=== PATIENT | male | born 1935 | race Caucasian/White ===

== ENCOUNTER 2017-11-04 16:49 | Emergency (ER) | payer MEDICARE ==
[2017-11-04 17:29] LABS: ABS Basophils 0 10^3/ul (0-0.2); ABS Eosinophils 0 10^3/ul (0-0.6); ABS Monocytes 0.6 10^3/ul (0-0.8); ABS Nucleated RBC 0 10^3/ul; Eosinophil % 0.1 % (0-6); Hematocrit 31 % (42-52); Hemoglobin 10.1 g/dl (14.0-18.0); Mean Corpuscular HGB Conc 33 g/dl (31-36); Mean Corpuscular Hemoglobin 26 pg (27-31); Mean Corpuscular Volume 80 fL (80-94); Mean Platelet Volume 9 um3 (7.4-10.4); Nucleated Red Blood Cells % 0; Platelet Count 169 10^3/ul (150-450); Red Blood Count 3.84 10^6/ul (4.0-5.4); Red Cell Distribution Width 16 % (10.5-15); White Blood Count 8.7 10^3/ul (3.5-10.8)
[2017-11-04 17:39] LABS: INR 1.06 (0.77-1.02)
--- NOTE | 2017-11-04 17:39 | RAD ---
INDICATION: Hematemesis. COMPARISON: There are no prior studies available for comparison. TECHNIQUE: A portable view of the chest was obtained. FINDINGS: The heart is within normal limits in size. The lungs are hyperinflated suggestive of chronic obstructive pulmonary disease. There is a focal infiltrate which projects over the right heart border at the right lung base most consistent with pneumonia. No pleural effusion is seen. IMPRESSION: RIGHT BASILAR INFILTRATE MOST CONSISTENT WITH PNEUMONIA.
[2017-11-04] MEDS ORDERED: Levofloxacin 750 MG IVPREMIX(* 750 MG/150 ML BAG IVPB ONE (17:48)
[2017-11-04] MEDS ORDERED: NS 0.9% 1000 ML* 1,000 ML IV ONE (17:48)
[2017-11-04 17:50] LABS: EGFR Non-African American 133.8 (>60)
[2017-11-04] MEDS ORDERED: Pantoprazole IV* 40 MG IV ONE (18:55)
--- NOTE | 2017-11-04 19:45 | RAD ---
INDICATION: Hemoptysis. COMPARISON: Comparison is made with a prior chest x-ray study of the same day. TECHNIQUE: A CT scan of the chest was performed without intravenous contrast. Contiguous axial sections were obtained from the lung apices through the lung bases. Images were reconstructed in the coronal and sagittal planes. FINDINGS: There are patchy nodular infiltrates present within the right middle and lower lobes and faint groundglass infiltrates present in the left upper and lower lobes. The nodularity appears most prominent in the right lower lobe and toward the right hilar region. There is a small right pleural effusion. There are slightly prominent precarinal and subcarinal lymph nodes measuring up to 1.2 cm in transverse dimension. The heart is within normal limits in size. No pericardial effusion is present. There are coronary artery calcifications present. The thoracic aorta is normal in caliber. Imaging of the upper abdomen demonstrate postcholecystectomy changes. 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 No hydronephrosis is seen. There is a mild compression fracture of the superior endplate of the L1 vertebral body, age indeterminate. IMPRESSION: 1. BILATERAL INFILTRATES MOST PROMINENT IN THE RIGHT MIDDLE AND LOWER LOBES WITH SOME NODULARITY PRESENT MOST CONSISTENT WITH PNEUMONIA. RECOMMEND FOLLOW-UP CHEST X-RAYS TO RESOLUTION. 2. SMALL RIGHT PLEURAL EFFUSION. 3. MILDLY ENLARGED MEDIASTINAL LYMPH NODES. 4. NONOBSTRUCTING LEFT RENAL CALCULI. 5. MILD COMPRESSION FRACTURE OF THE SUPERIOR ENDPLATE OF THE L1 VERTEBRAL BODY, AGE INDETERMINATE.
--- NOTE | 2017-11-04 19:59 | ED ---
Haley Pike Thomas, scribed for Louis Zabala MD on 11/04/17 at 1704 . Respiratory - HPI Summary HPI Summary: The patient is an 81 year old male complaining of coughing up blood that began today. The patient reports he has been producing colored mucous for the last few days. He has generalized weakness. He is febrile at 101.2. When EMS arrived , the patient was satting 86. He has been steadily losing weight over the last few weeks. Per documentation from Dr. Waters office, the patient has COPD. - History of Current Complaint Chief Complaint: EDGeneral Stated Complaint: COUGHING UP BLOOD Time Seen by Provider: 11/04/17 16:59 Hx Obtained From: Patient Onset/Duration: Lasting Hours - onset today, Still Present Timing: Intermittent Episodes Lasting: Current Severity: Severe Pain Intensity: 0 Character: Cough (Productive) Alleviating Factor(s): Nothing Associated Signs and Symptoms: Fever - Allergy/Home Medications Allergies/Adverse Reactions: Allergies Allergy/AdvReac Type Severity Reaction Status Date / Time levofloxacin [From Levaquin] Allergy Hives Verified 11/04/17 18:53 Home Medications: Home Medications Ketoconazole [Ketoconazole] 2 % TOPICAL .THREETIMESWEEKLY 11/04/17 [History Confirmed 11/04/17] Latanoprost 0.005%* [Xalatan 0.005%*] 1 drop BOTH EYES DAILY 11/04/17 [History Confirmed 11/04/17] Omeprazole CAP* [Prilosec CAP* 20 MG] 20 mg PO BID 11/04/17 [History Confirmed 11/04/17] Penicillin VK TAB* [Penicillin VK 250 mg Tab*] 500 mg PO QID 11/04/17 [History Confirmed 11/04/17] Ranitidine TAB (NF) [Zantac TAB (NF)] 300 mg PO BEDTIME 11/04/17 [History Confirmed 11/04/17] Timolol 0.5% OPTH.JUAN* [Timoptic 0.5% Opth*] 1 drop BOTH EYES BID 11/04/17 [ History Confirmed 11/04/17] PMH/Surg Hx/FS Hx/Imm Hx Respiratory History: Reports: Hx Chronic Obstructive Pulmonary Disease (COPD) Sensory History: Denies: Hx Legally Blind EENT History: Reports: Hx Hearing Problem Infectious Disease History: No Infectious Disease History: Denies: Traveled Outside the [place] in Last 30 Days - Family History Known Family History: Positive: Other - Intestinal obstruction (mother at 23) - Social History Occupation: Unemployed Lives: Alone Smoking Status (MU): Unknown if Ever Smoked Review of Systems Positive: Fever, Other - Generalized weakness, weight loss Positive: Other - Hemoptysis All Other Systems Reviewed And Are Negative: Yes Physical Exam - Summary Physical Exam Summary: Appearance: The patient is in no acute distress and in no acute pain. Skin: The skin is warm and dry and skin color reflects adequate perfusion. HEENT: The head is normocephalic and atraumatic. The pupils are equal and reactive. The conjunctivae are clear and without drainage. Nares are patent and without drainage. Mouth reveals moist mucous membranes and the throat is without erythema and exudate. The external ears are intact. The ear canals are patent and without drainage. The tympanic membranes are intact. Neck: the neck is supple with full range of motion and non-tender. There are no carotid bruits. There is no neck vein distension. Respiratory: Chest is non-tender. There are decreased lung sounds on the right. There are no lungs sounds on the base of the right. There are crackles diffusely on the left. Cardiovascular: He has tachycardia. Regular rhythm. There is no murmur or rub auscultated. There is no peripheral edema and pulses are symmetrical and equal. Abdomen: The abdomen is soft and non-tender. There are normal bowel sounds heard in all four quadrants and there is no organomegaly palpated. Musculoskeletal: There is no back tenderness noted. Extremities are non-tender with full range of motion. There is good capillary refill. There is no peripheral edema or calf tenderness elicited. Neurological: Patient is alert and oriented to person, place and time. The patient has symmetrical motor strength in all four extremities. Cranial nerves are grossly intact. Deep tendon reflexes are symmetrical and equal in all four extremities. Psychiatric: The patient has an appropriate affect and does not exhibit any anxiety or depression. Triage Information Reviewed: Yes Vital Signs On Initial Exam: Initial Vitals Temp Pulse Resp BP Pulse Ox 101.2 F 105 18 166/85 93 11/04/17 16:55 11/04/17 16:55 11/04/17 16:55 11/04/17 16:55 02/18/18 16:55 Vital Signs Reviewed: Yes Diagnostics - Vital Signs Vital Signs Temp Pulse Resp BP Pulse Ox 11/04/17 16:55 101.2 F 105 18 166/85 93 - Laboratory Lab Results: Lab Results 11/04/17 11/04/17 11/04/17 Range/Units 17:15 17:15 17:15 WBC 8.7 (3.5-10.8) 10^3/ul RBC 3.84 L (4.0-5.4) 10^6/ul Hgb 10.1 L (14.0-18.0) g/dl Hct 31 L (42-52) % MCV 80 (80-94) fL MCH 26 L (27-31) pg MCHC 33 (31-36) g/dl RDW 16 H (10.5-15) % Plt Count 169 (150-450) 10^3/ul MPV 9 (7.4-10.4) um3 Neut % (Auto) 80.5 (38-83) % Lymph % (Auto) 12.0 L (25-47) % Edgar % (Auto) 6.9 (1-9) % Eos % (Auto) 0.1 (0-6) % Baso % (Auto) 0.5 (0-2) % Absolute Neuts (auto) 7.0 (1.5-7.7) 10^3/ul Absolute Lymphs (auto) 1.0 (1.0-4.8) 10^3/ul Absolute Monos (auto) 0.6 (0-0.8) 10^3/ul Absolute Eos (auto) 0 (0-0.6) 10^3/ul Absolute Basos (auto) 0 (0-0.2) 10^3/ul Absolute Nucleated RBC 0 10^3/ul Nucleated RBC % 0 INR (Anticoag Therapy) (0.77-1.02) D-Dimer, Quantitative (Less Than 230) ng/mL Sodium 139 (133-145) mmol/L Potassium 3.6 (3.5-5.0) mmol/L Chloride 103 (101-111) mmol/L Carbon Dioxide 24 (22-32) mmol/L Anion Gap 12 H (2-11) mmol/L BUN 22 (6-24) mg/dL Creatinine 0.58 L (0.67-1.17) mg/dL Est GFR ( Amer) 172.1 (>60) Est GFR (Non-Af Amer) 133.8 (>60) BUN/Creatinine Ratio 37.9 H (8-20) Glucose 151 H (70-100) mg/dL Lactic Acid (0.5-2.0) mmol/L Calcium 9.1 (8.6-10.3) mg/dL Total Bilirubin 0.60 (0.2-1.0) mg/dL AST 19 (13-39) U/L ALT 12 (7-52) U/L Alkaline Phosphatase 75 (34-104) U/L Troponin I 0.02 (<0.04) ng/mL C-Reactive Protein 17.08 H (< 5.00) mg/L B-Natriuretic Peptide 66 ( - 100) pg/mL Total Protein 6.8 (6.4-8.9) g/dL Albumin 3.5 (3.2-5.2) g/dL Globulin 3.3 (2-4) g/dL Albumin/Globulin Ratio 1.1 (1-3) Influenza A (Rapid) (Negative) Influenza B (Rapid) (Negative) 11/04/17 11/04/17 11/04/17 Range/Units 17:15 17:15 17:57 WBC (3.5-10.8) 10^3/ul RBC (4.0-5.4) 10^6/ul Hgb (14.0-18.0) g/dl Hct (42-52) % MCV (80-94) fL MCH (27-31) pg MCHC (31-36) g/dl RDW (10.5-15) % Plt Count (150-450) 10^3/ul MPV (7.4-10.4) um3 Neut % (Auto) (38-83) % Lymph % (Auto) (25-47) % Edgar % (Auto) (1-9) % Eos % (Auto) (0-6) % Baso % (Auto) (0-2) % Absolute Neuts (auto) (1.5-7.7) 10^3/ul Absolute Lymphs (auto) (1.0-4.8) 10^3/ul Absolute Monos (auto) (0-0.8) 10^3/ul Absolute Eos (auto) (0-0.6) 10^3/ul Absolute Basos (auto) (0-0.2) 10^3/ul Absolute Nucleated RBC 10^3/ul Nucleated RBC % INR (Anticoag Therapy) 1.06 H (0.77-1.02) D-Dimer, Quantitative < 200 (Less Than 230) ng/mL Sodium (133-145) mmol/L Potassium (3.5-5.0) mmol/L Chloride (101-111) mmol/L Carbon Dioxide (22-32) mmol/L Anion Gap (2-11) mmol/L BUN (6-24) mg/dL Creatinine (0.67-1.17) mg/dL Est GFR ( Amer) (>60) Est GFR (Non-Af Amer) (>60) BUN/Creatinine Ratio (8-20) Glucose (70-100) mg/dL Lactic Acid 2.4 H* (0.5-2.0) mmol/L Calcium (8.6-10.3) mg/dL Total Bilirubin (0.2-1.0) mg/dL AST (13-39) U/L ALT (7-52) U/L Alkaline Phosphatase (34-104) U/L Troponin I (<0.04) ng/mL C-Reactive Protein (< 5.00) mg/L B-Natriuretic Peptide ( - 100) pg/mL Total Protein (6.4-8.9) g/dL Albumin (3.2-5.2) g/dL Globulin (2-4) g/dL Albumin/Globulin Ratio (1-3) Influenza A (Rapid) Negative (Negative) Influenza B (Rapid) Negative (Negative) Result Diagrams: 11/04/17 17:15 11/04/17 17:15 Lab Statement: Any lab studies that have been ordered have been reviewed, and results considered in the medical decision making process. - Radiology CXR Xray Interpretation: Positive (See Comments) - RIGHT BASILAR INFILTRATE MOST CONSISTENT WITH PNEUMONIA. Dr. Zabala has reviewed this report. Radiology Interpretation Completed By: Radiologist Disposition - Course Course Of Treatment: Mr. Valderrama presented with a day of coughing up some mucous. In the last 3 hours, it has been bright red blood. He is unaware of a diagnosis of COPD which is in the paperwork that he brought with him from Dr. Camacho' office. He does cough up some bright red blood here and the estimate is about 6 ounces or so in the last 4 hours. His CXR revealed a left infiltrate and I started levaquin on him. He was given IV NS and the hospitalist service was contacted to see him. Dr. Manzanares came and saw the patient who began to have an urticarial reaction to the levaquin and changed him to a cephalosporin. CT chest showed infiltrates only. Dr. Vallejo was contacted by Dr. Manzanares as licensed acupuncturist and mold closer on [facility]. She refused the patient as we have no thoracic surgery backup and requested that he be transferred to [facility]. I spoke with Dr. Aviles who accepted the patient to the ICU at [facility]. He has been stable since arrival and has two peripheral IVs in place. - Diagnoses Provider Diagnoses: PNA (pneumonia), Hemoptysis - Physician Notifications Discussed Care Of Patient With: Aurelio Manzanares Time Discussed With Above Provider: 18:28 - Critical Care Time Critical Care Time: 30-74 min Discharge - Discharge Plan Condition: Fair Disposition: ADMITTED TO [facility] Referrals: No Primary Care Phys,NOPCP [Primary Care Provider] - The documentation as recorded by the Haley rodrigez Thomas accurately reflects the service I personally performed and the decisions made by me, Louis Zabala MD.
[2017-11-04 21:10] VITALS: BP 137/89
[2017-11-05] MEDS ORDERED: cefTRIAXone(*) 1 GM in NS 0.9% 50 ML* 50 ML IVPB ONE (01:00)
== END 2017-11-04 21:27 | disposition short-term general hospital (02) ==
LOC: ED 16:49
DX: J18.9 Pneumonia, unspecified organism (principal); R04.2 Hemoptysis; J90 Pleural effusion, not elsewhere classified; R59.0 Localized enlarged lymph nodes; N20.0 Calculus of kidney; M48.56XA Collapsed vertebra, not elsewhere classified, lumbar region, initial encounter for fracture; J44.9 Chronic obstructive pulmonary disease, unspecified; R00.0 Tachycardia, unspecified; Z88.1 Allergy status to other antibiotic agents
CPT/HCPCS: 36415; 71045; 71250; 80053; 83605; 83880; 84484; 85025; 85379; 85610; 86140; 86850; 86900; 86901; 87040; 87502; 96361; 96365; 96366; 96375; 99285

== ENCOUNTER 2018-09-11 10:45 | Observation (INO) | payer MEDICARE, MEDICAID ==
[2018-09-11] MEDS ORDERED: Dexamethasone IV* 4 MG/ML 1 ML (4 MG) ONE (13:01)
[2018-09-11] MEDS ORDERED: Cisatracurium* 2 MG/ML MDV 5 ML ONE (13:01)
[2018-09-11] MEDS ORDERED: Midazolam* 1 MG/ML 2 ML VIAL (2 MG) ONE (13:01)
[2018-09-11] MEDS ORDERED: Famotidine IV* 10 MG/ML 2 ML (20 mg) ONE (13:01)
[2018-09-11] MEDS ORDERED: Propofol* 10 MG/ML 20 ML BTL ONE (13:01)
[2018-09-11] MEDS ORDERED: fentaNYL* 50 MCG/ML 2 ML VIAL (100 MCG VIAL) ONE (13:01)
[2018-09-11] MEDS ORDERED: Acetaminophen TAB* 325 MG PO PRN (13:35)
[2018-09-11] MEDS ORDERED: Ondansetron INJ* 2 MG/ML VIAL IV PRN (13:35)
[2018-09-11] MEDS ORDERED: PROCHLORPERAZINE INJ 5 MG/ML 2 ML VIAL IV PRN (13:35)
[2018-09-11] MEDS ORDERED: Levalbuterol 0.63MG/3ML NEB* UNIT OF USE INH PRN (13:35)
[2018-09-11] MEDS ORDERED: Naloxone* 0.4 MG/ML 1 ML VIAL IV PRN (13:35)
[2018-09-11] MEDS ORDERED: DiMENhydriNATE IV* 50 MG/ML VIAL IV PUSH PRN (13:35)
[2018-09-11] MEDS ORDERED: fentaNYL* 50 MCG/ML 2 ML VIAL (100 MCG VIAL) IV PRN (13:35)
[2018-09-11] MEDS ORDERED: Lidocaine 2% PF * 5 ML VIAL ONE (14:11)
[2018-09-11] MEDS ORDERED: Albuterol 2.5 MG/3 ML NEB.SOL* (0.083%) INH PRN (15:20)
--- NOTE | 2018-09-11 16:31 | PRO ---
BRONCHOSCOPY REPORT: DATE OF PROCEDURE: 09/11/18 PROCEDURE PERFORMED: Bronchoscopy with endobronchial ultrasound-guided fine- needle aspiration from the station 7 lymph node. PREPROCEDURAL DIAGNOSIS: Enlarged station 7 lymph node. ANESTHESIA: General anesthesia. ANESTHESIOLOGIST: Dr. Mcleod. DESCRIPTION OF PROCEDURE: Informed consent was obtained from the patient prior to the procedure after all the risks and benefits were thoroughly explained. The patient has history of chronic cough, history of hemoptysis and bronchiectasis. Recent CT showed bronchiectasis, lung infiltrates and enlarged station 7 lymph node with abnormal vascularity. Appropriate time-out was agreed on by attending staff prior to the procedure. A flexible Olympus bronchoscope was inserted through ET tube for airway inspection. Green phlegm was seen in the right middle lobe and was suctioned out. Bronchoalveolar lavage was obtained from right middle lobe. No endobronchial lesions were noted. No significant secretions noted in other areas. Bronchoscope was then withdrawn and EBUS bronchoscope was inserted. Station 7 was enlarged and was accessed with 7 passes. First 4 passes did not reveal lymphatic tissue, blood was seen on rapid onsite evaluation. Pass 6 and 7 showed lymphatic tissue with no malignant cells or granulomas. The patient tolerated the procedure well. The patient was extubated and seen in the recovery in optimal condition. The patient will be admitted for monitoring overnight as he has no family or friends that can provide ride for him. [id number]/[facility] #: [id number] [facility]ENTERM[facility]
--- NOTE | 2018-09-11 16:54 | PN ---
Progress Note - Progress Note Date of Service: 09/11/18 - Admit note Note: Pt is 82 y o m, non- smoker with h/o BPH, GERD, Glaucoma, bronchiectasis, prior h/o hemoptysis. Pt has h/o abnormal CT chest with airspace opacities in left lung , signficant bronchiectatic changes, enlarged subcarinal node. He had flexible and rigid bronchoscopy in Oct 2017 at [place] when he presented with hemoptysis. No bleeding source was noted, blood clot was removed. No hemoptysis since then. He has chronic productive cough which is being managed with mucus clearance techniques. Pt underwent f/u CT chest recently which showed signifcanlty enlarged station-7 node with increased vascularity. He was scheduled for bronchoscopy/EBUS today under [place]. Patient lives alone and doesnot have family or friends and was admitted for observation status. Pt denied significant cough after GA. Denied headache, SOB. Has BPH and has poor urinary stream. PMHx: As above PSHx: Stomach sx 1959, 1962, Hernia repairX2, Gall bladder, kidney stone removal , Tonsillectomy, [place] tooth removal FHx: Father- Asthma All: Codeine Social Hx: Non-smoker, no ETOH or drug abuse Latanoprost 0.005%* [Xalatan 0.005%*] 1 drop BOTH EYES BEDTIME 11/04/17 [ History Confirmed 09/09/18] Omeprazole CAP* [Prilosec CAP* 20 MG] 20 mg PO DAILY PRN 11/04/17 [History Confirmed 09/11/18] Ranitidine TAB (NF) [Zantac TAB (NF)] 300 mg PO BID PRN 11/04/17 [History Confirmed 09/09/18] Timolol 0.5% OPTH.JUAN* [Timoptic 0.5% Opth*] 1 drop BOTH EYES BID 11/04/17 [ History Confirmed 09/09/18] Aspirin [Adult Aspirin] 81 mg PO 1200 09/09/18 [History Confirmed 09/09/18] Cyanocobalamin TAB* [Vitamin B12 TAB*] 1,000 mcg PO 1200 09/09/18 [History Confirmed 09/09/18] Ferrous Sulfate [Iron High-Potency] 325 mg PO 1200 09/09/18 [History Confirmed 09/09/18] Furosemide [Lasix] 20 mg PO 1200 PRN 09/09/18 [History Confirmed 09/11/18] Multivitamin [Multiple Vitamins] 1 tab PO 1200 09/09/18 [History Confirmed 09/09] Alex-3 Fatty Acids/Fish Oil [Fish Oil 1,000 mg Capsule] 1,000 mg PO 1200 [History Confirmed 09/09/18] RX: Ascorbic Acid 500 mg PO 1200 09/09/18 [History Confirmed 09/09/18] RX: Ketoconazole 2 % CREAM (NF) [Nizoral 2% CREAM (NF)] 1 applic TOPICAL TID [History Confirmed 09/09/18] RX: Tamsulosin HCl 1 tab PO QAM 09/09/18 [History Confirmed 09/11/18] O/E: Pt in NAD Vital Signs Temp Pulse Resp BP Pulse Ox 96.8 F 76 17 166/82 100 09/11/18 14:21 09/11/18 15:30 09/11/18 16:00 09/11/18 15:30 09/11/18 15:30 HEENT: PERRLA, no JVD Lungs: Good a/e b/l CVS: S1, S2, regular Abd: Soft, BS+ Ext: Normal ROM Skin: No rash Neuro: Alert, awake, no focal deficits Labs: No new labs A/P: 82 y o m s/p bronchoscopy/EBUS under GA with sampling of station-7 node. Please refer to detailed procedure report Pt admitted with telemetry monitoring under hospitalist service All home meds and diet were restarted Pt in NAD after procedure c/w bronchodilators prn DVT, GI px For d/c home in am D/w Dr Manzanares and pts RN
[2018-09-11] MEDS ORDERED: Omeprazole CAP* 20 MG PO PRN (17:00)
[2018-09-11] MEDS ORDERED: Latanoprost 0.005%* 2.5 ml BTL BOTH EYES SCH (21:00)
[2018-09-11] MEDS: Heparin VIAL(*) 5000 UNITS/ML VIAL (FIVE THOUSAND) SUBCUT SCH (22:15)
[2018-09-11] MEDS: Timolol 0.5% OPTH.SOL* BTL BOTH EYES SCH (22:15)
[2018-09-12] MEDS: Heparin VIAL(*) 5000 UNITS/ML VIAL (FIVE THOUSAND) SUBCUT SCH (05:35)
[2018-09-12 07:58] VITALS: BP 156/75
[2018-09-12] MEDS: Timolol 0.5% OPTH.SOL* BTL BOTH EYES SCH (08:26)
[2018-09-12] MEDS ORDERED: Tamsulosin CAP* 0.4 MG PO SCH (09:00)
--- NOTE | 2018-09-12 10:30 | PN ---
Progress Note - Progress Note Date of Service: 09/12/18 - Pulm f/u note Note: Pt seen and was examined at bedside. Pt reports doing well. Denies much cough. No issues o/n. Reports seeing bright red blood while urinating, unsure if its from IV. Urine was clear. Active Medications Generic Name Dose Route Start Last Admin Trade Name Freq PRN Reason Stop Dose Admin Albuterol 2.5 mg 09/11/18 15:20 Ventolin 2.5 Mg/3 Ml Neb.Nuria* INH [id number] AWAKE PRN sob/wheezing Ascorbic Acid 500 mg 09/12/18 12:00 Vitamin C Tab* PO 1200 KARIE Aspirin 81 mg 09/12/18 12:00 Aspirin Ec Tab* PO 1200 KARIE Cyanocobalamin 1,000 mcg 09/12/18 12:00 Vitamin B12 Tab* PO 1200 KARIE Ferrous Sulfate 325 mg 09/12/18 12:00 Ferrous Sulfate Tab* PO 1200 KARIE Furosemide 20 mg 09/12/18 12:00 Lasix Tab* PO 1200 PRN Edema Heparin Sodium (Porcine) 5,000 units 09/11/18 22:00 09/12/18 05:35 Heparin Vial(*) SUBCUT 5,000 units Q8HR KAREI Administration Latanoprost 1 drop 09/11/18 21:00 09/11/18 22:15 Xalatan 0.005%* BOTH EYES 1 drop BEDTIME KARIE Administration Multivitamins 1 tab 09/12/18 12:00 Vitamin Tab* PO 1200 KARIE Omeprazole 20 mg 09/11/18 17:00 Prilosec Cap* PO DAILY@0730 PRN INDIGESTION Tamsulosin HCl 0.4 mg 09/12/18 09:00 09/12/18 08:24 Flomax Cap* PO Not Given QAM KARIE Timolol Maleate 1 drop 09/11/18 21:00 09/12/18 08:26 Timoptic 0.5% Opth* BOTH EYES 1 drop BID KARIE Administration O/E: Vital Signs Temp Pulse Resp BP Pulse Ox 98.5 F 72 16 156/75 99 09/12/18 07:24 09/12/18 07:24 09/12/18 08:00 09/12/18 07:24 09/12/18 07:24 HEENT: PERRLA, no JVD Lungs: Good a/e b/l CVS: S1, S2, regular Abd: Soft, BS+ Ext: Normal ROM Skin: No rash Neuro: Alert, awake, no focal deficits Labs: No new labs A/P: 82 y o m s/p bronchoscopy/EBUS under GA on 09/11/18 with sampling of station-7 node. Pt was placed in observation status given no safe discharge plan Uneventful course o/n c/w bronchodilators prn DVT, GI px Cx from BAL negative to date No malignant cells noted on lymph node sampling priliminary read For d/c home today
[2018-09-12] MEDS ORDERED: Ferrous Sulfate TAB* 325 MG PO SCH (12:00)
[2018-09-12] MEDS ORDERED: Aspirin EC TAB* 81 MG TAB.EC PO SCH (12:00)
[2018-09-12] MEDS ORDERED: Cyanocobalamin TAB* 500 MCG PO SCH (12:00)
[2018-09-12] MEDS ORDERED: Prenatal Vitamin TAB PO SCH (12:00)
[2018-09-12] MEDS ORDERED: Ascorbic Acid TAB* 500 MG PO SCH (12:00)
[2018-09-12] MEDS ORDERED: Furosemide TAB* 20 MG PO PRN (12:00)
--- NOTE | 2018-09-12 23:49 | DS ---
CC: Dr. Moses Camacho; Dr. Jessica Vallejo* DISCHARGE SUMMARY: DATE OF ADMISSION: 09/11/18 DATE OF DISCHARGE: 09/12/18 ATTENDING PHYSICIAN: Dr. Rodger Lozano* (dictated by LUDWIN Mcgarry). PRIMARY CARE PROVIDER: Dr. Moses Camacho. OUTPATIENT REGULATORY ASSISTANT: Dr. Jessica Vallejo. PRIMARY DISCHARGE DIAGNOSIS: Bronchoscopy, lung mass. SECONDARY DISCHARGE DIAGNOSIS: 1. Bronchiectasis. 2. BPH. 3. Gastroesophageal reflux disease. 4. Glaucoma. 5. Abnormal chest CT. 6. Nephrolithiasis. STUDIES: Cytology shows bronchial lavage negative for malignant cells. Lymph node biopsy shows benign lymphoid tissue. MEDICATIONS AT DISCHARGE: 1. Timolol 0.5% one drop both eyes b.i.d. 2. Ranitidine 300 mg p.o. b.i.d. as needed. 3. Omeprazole 20 mg p.o. daily. 4. Latanoprost 1 drop both eyes at bedtime. 5. Multivitamin 1 tab p.o. daily. 6. Ketoconazole 1 application topical t.i.d. 7. Furosemide 20 mg p.o. daily as needed. 8. [place]-3 fatty acid 1000 mg p.o. daily. 9. Ferrous sulfate 325 mg p.o. daily. 10. Vitamin B12 1000 mcg p.o. daily. 11. Aspirin 81 mg p.o. daily. 12. Ascorbic acid 500 mg p.o. daily. 13. Tamsulosin 1 tab daily. HOSPITAL COURSE: This is a brief summary of the patient's presentation. For more details, please see the preoperative history and physical from Dr. Jessica Vallejo. In brief, the patient is an 82-year-old male with past medical history significant for the above, who was admitted for endobronchial ultrasound with biopsies which was performed without complication. The patient is legally blind and did not feel safe at home, so the patient was kept overnight. The patient's overnight stay was uneventful. The patient's vital signs stayed stable. The patient had a small amount of teddy red blood in his urine, but this was likely due to catheterization and resolved spontaneously. The patient was stable enough for discharge on 09/12/18 in the morning per followup with Dr. Vallejo. PHYSICAL EXAM: General: The patient is an 82-year-old male who appears his stated age and is sitting comfortably in bed, in no acute distress. Vital Signs : Temperature 98.3, pulse rate 72, respiratory rate 16, oxygen saturation 95% on room air, blood pressure 156/75. HEENT: Head: Normocephalic, atraumatic. Sclerae anicteric. No conjunctival injection. Nasal mucosa moist. Oral mucosa moist. No pharyngeal erythema, discharge, or exudate. Neck: Supple, nontender. No lymphadenopathy. No carotid bruits auscultated. No JVD. Cardiac : Regular rate and rhythm. No clicks, murmurs, gallops, or rubs. Pulses 2+ bilaterally in dorsalis pedis, posterior tibialis, and radial areas. Respiratory: Diminished throughout. No adventitious lung sounds. Good air exchange bilaterally. Abdomen: Soft, nontender, nondistended. Bowel sounds present, normoactive in all 4 quadrants. No hepatosplenomegaly. No abdominal bruits auscultated. No hepatojugular reflux. Genitourinary: No suprapubic or CVA tenderness. Skin: Clean, dry, and intact. No rash. Neuro: Cranial nerves II through XII intact. No focal deficits. Alert and oriented x3. Psychiatric: Pleasant and cooperative. DISCHARGE PLAN: The patient will be discharged to home. The patient will follow up on the results of his bronchoscopy with Dr. Vallejo. The patient is to follow up with his primary care provider within 1 week for general medical management. No medication changes were made. TIME SPENT: Approximately 45 minutes were spent on discharge of this patient, 20 of which was spent [id number] with the patient obtaining history and physical and discussing treatment plan. LUDWIN MCGARRY [id number]/[facility] #: [id number] [place]
== END 2018-09-12 11:57 | disposition home or self-care (01) ==
LOC: OR 10:45 → SSU 16:22
PROVIDERS: ADMIT Internal Medicine; ATTEND Student in an Organized Health Care Education/Training Program
DX: R91.8 Other nonspecific abnormal finding of lung field (principal); J47.9 Bronchiectasis, uncomplicated; N40.0 Benign prostatic hyperplasia without lower urinary tract symptoms; K21.9 Gastro-esophageal reflux disease without esophagitis; H40.9 Unspecified glaucoma; N20.0 Calculus of kidney; Z79.82 Long term (current) use of aspirin
CPT/HCPCS: 87070; 87077; 87102; 87116; 87205; 87206; 88112; 88172; 88173; 88177; 88184; 88187; 88188; 88189; 88305; 96372; 96374; 96375; 96376; A9270-GY; G0378; J1100; J1644; J2250; J2704; J3010

== ENCOUNTER → 2019-05-26 | Day surgery (SDC) | payer MEDICARE, MEDICAID ==
[~2019-05-26] MED LIST: Buffered Lidocaine 1% SYRIN* 1 ML/SYRINGE INTRADERM ONE; Furosemide IV* 10 MG/ML 2 ML VIAL (20 MG) ONE; Lactated Ringers 1000 ML Bag* 1,000 ML IV SCH; Lidocaine 2% PF * 5 ML VIAL ONE; Naloxone* 0.4 MG/ML 1 ML VIAL IV PRN; Propofol* 10 MG/ML 20 ML BTL ONE; cefTRIAXone(*) 2 GM ADDV.VIAL IVPB ONE
[2019-05-26 18:29] VITALS: BP 146/72
--- NOTE | 2019-05-26 23:22 | OP ---
CC: Dr. Camacho * DATE OF OPERATION: 05/26/19 - [facility] DATE OF : 31 SURGEON: Milton Motta MD ANESTHESIOLOGIST: Dr. Lira. ANESTHESIA: General. PRE-OP DIAGNOSES: 1. Left renal calculus. 2. Left ureteral calculus. POST-OP DIAGNOSES: 1. Left renal calculus. 2. Left ureteral calculus. OPERATIVE PROCEDURE: 1. Shock wave lithotripsy of left renal calculus. 2. Shock wave lithotripsy of left ureteral calculus. COMPLICATIONS: None. POSTOPERATIVE CONDITION: Stable. INDICATIONS: Torsten Valderrama is an 83-year-old gentleman who had initially been evaluated for bilateral hydronephrosis. He had a large obstructing calculus in the left proximal ureter, which I successfully fragmented with a laser. He still has a small fragment of that calculus and in addition he has a large left renal calculus for which he is going to require lithotripsy. 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 He is now being brought in for shock-wave lithotripsy of the large left renal calculus and also of the small remaining fragment from the calculus of the left ureter. DESCRIPTION OF PROCEDURE: After induction of general anesthesia, the patient was placed on the lithotripsy table in a supine position. Attention was first directed to the small calculus in the proximal left ureter adjacent to the stent. Shock wave lithotripsy was commenced at a rate of 90 shocks per minute and 1200 shocks were used to fragment this calculus. Next, attention was directed to the large left renal calculus. This was localized using fluoroscopy and shock wave lithotripsy was commenced at a rate of 90 shocks per minute. After the initial 300 shocks, there was pause in lithotripsy for several minutes in an effort to minimize any potential trauma to the kidney. Lithotripsy was then resumed and a total of 2400 shocks were administered to this calculus. The patient tolerated the procedure satisfactorily and was transferred back to the recovery area in stable condition. My plan is to obtain a postoperative x-ray to assess the degree of fragmentation prior to scheduling stent removal. [id number]/[facility] #: [id number] MTDD
== END | disposition home or self-care (01) ==
LOC: OR 09:23
PROVIDERS: ATTEND Urology
DX: N20.2 Calculus of kidney with calculus of ureter (principal); E11.9 Type 2 diabetes mellitus without complications; M19.90 Unspecified osteoarthritis, unspecified site; F41.8 Other specified anxiety disorders; N40.0 Benign prostatic hyperplasia without lower urinary tract symptoms; D64.89 Other specified anemias; J47.9 Bronchiectasis, uncomplicated
CPT/HCPCS: 74018; J0696; J1940; J2704

== ENCOUNTER → 2019-06-23 10:09 | Day surgery (SDC) | payer MEDICARE, MEDICAID ==
--- NOTE | 2019-06-18 19:05 | HP ---
CC: Dr. Camacho; Dr. Vallejo * ADMITTING HISTORY AND PHYSICAL: DATE OF ADMISSION: 06/23/19 ADMITTING DIAGNOSIS: Bilateral hydronephrosis. PLANNED PROCEDURE: Cystoscopy, bilateral stent removal. SURGEON: Dr. Motta. HISTORY OF PRESENT ILLNESS: Torsten Valderrama is an 83-year-old gentleman who had been evaluated in April for bilateral hydronephrosis. On the right side, the hydronephrosis is secondary to a stricture, and on the left side, he had multiple left renal and ureteral calculi. He had undergone bilateral stent insertion followed by shock wave lithotripsy of the calculi and now desires his bilateral stent removal to be done with intravenous sedation rather than in the office as is my usual practice. PAST MEDICAL HISTORY: Significant for: 1. Bilateral hydronephrosis. 2. History of gastroesophageal reflux. 3. BPH. 4. Glaucoma. 5. Bronchiectasis. PAST SURGICAL HISTORY: Significant for: 1. Cholecystectomy. 2. Partial gastrectomy for peptic ulcer. 3. Recent bilateral stent and shock wave lithotripsy. 4. Bilateral inguinal hernia repair. MEDICATIONS: 1. Omeprazole 20 mg daily. 2. Eye drops for glaucoma. 3. Ferrous sulfate 325 mg daily. 4. Vitamin B12 1000 mcg daily. 5. Vitamins. ALLERGIES AND INTOLERANCES: 1. LEVAQUIN. 2. CODEINE. FAMILY HISTORY: Negative for stones. SOCIAL HISTORY: Smoking history, nonsmoker. REVIEW OF SYSTEMS: He denies any chest pain. There is no history of diabetes or any other major medical issues. He does not use any supplemental oxygen. PHYSICAL EXAMINATION GENERAL: Revealed a pleasant elderly gentleman. VITAL SIGNS: Blood pressure is 120/80, pulse 76 per minute, oxygen saturation 98% on room air, temperature 96.1. LUNGS: Clear bilaterally. CARDIOVASCULAR EXAM: Regular rate and rhythm. S1, S2. ABDOMEN: Soft with mild bilateral flank tenderness. IMPRESSION: An 83-year-old gentleman status post bilateral stent insertion with resolution of bilateral hydronephrosis, who is now being brought in for a cystoscopy and bilateral stent removal with intravenous sedation. [id number]/[facility] #: [id number] MTDD
[~2019-06-23 10:09] MED LIST changes: +Dexamethasone IV* 4 MG/ML 1 ML (4 MG) ONE; +Famotidine IV* 10 MG/ML 2 ML (20 mg) IV ONE; +Famotidine IV* 10 MG/ML 2 ML (20 mg) ONE; +Iohexol 180 (CONTRAST) 10 ML SDV IV ONE; +Lidocaine 2% JELLY* 20 ML (for OR use) ONE; +Lidocaine 2% JELLY* 6 ML JELLY TOPICAL ONE; +Midazolam* 1 MG/ML 5 ML VIAL (5 MG) ONE; -Naloxone* 0.4 MG/ML 1 ML VIAL IV PRN; +Ondansetron INJ* 2 MG/ML VIAL ONE; +cefTRIAXone(*) 1 GM ADVAN/BAG ONE; -cefTRIAXone(*) 2 GM ADDV.VIAL IVPB ONE; +fentaNYL* 50 MCG/ML 2 ML VIAL (100 MCG VIAL) ONE
[2019-06-23 14:31] VITALS: BP 127/64
--- NOTE | 2019-06-24 00:59 | OP ---
DATE OF OPERATION: 06/23/19 - [facility] DATE OF : 31 SURGEON: Milton Motta MD ANESTHESIOLOGIST: Dr. Hernandez. ANESTHESIA: Intravenous sedation. PRE-OP DIAGNOSES: 1. History of bilateral hydronephrosis. 2. History of stricture, right ureter. 3. History of left renal and ureteral calculi. POST-OP DIAGNOSES: 1. History of bilateral hydronephrosis. 2. History of stricture, right ureter. 3. History of left renal and ureteral calculi. OPERATIVE PROCEDURE: Cystoscopy, bilateral stent removal. COMPLICATIONS: None. INDICATIONS: Torsten Valderrama is an 83-year-old gentleman with bilateral hydronephrosis, who had undergone procedures for stricture of the right ureter and for left renal and ureteral calculi. He now desires removal of his bilateral stents using intravenous sedation. POSTOPERATIVE CONDITION: Stable. DESCRIPTION OF PROCEDURE: After induction of intravenous sedation, the patient was placed in dorsal lithotomy position. Sequential compression devices were in place and functioning. 2% Xylocaine gel was instilled per urethra. Cystoscopy revealed a normal-appearing urethra, mild to moderately enlarged prostate, and a normal-appearing bladder with bilateral stents noted. Both the right and left ureteral stents were removed intact without difficulty and the bladder was emptied. The patient tolerated the procedure satisfactorily and was transferred back to the recovery area in stable condition. He does have fragments from the left renal and ureteral calculi and will require monitoring to make sure that these have passed over the course of the next few weeks. He will also require monitoring for recurrence of a stricture of the right ureter, for which he had undergone dilatation. [id number]/[facility] #: [id number] [facility]ENTER[facility]ina
== END | disposition home or self-care (01) ==
LOC: OR 10:09
PROVIDERS: ATTEND Urology
DX: N13.1 Hydronephrosis with ureteral stricture, not elsewhere classified (principal); K21.9 Gastro-esophageal reflux disease without esophagitis; F41.8 Other specified anxiety disorders; E11.9 Type 2 diabetes mellitus without complications
CPT/HCPCS: J0696; J1100; J1940; J2250; J2405; J2704; J3010